=== PATIENT | male | born 1955 | race Caucasian/White ===

== ENCOUNTER 2018-09-21 23:57 | Emergency (ER) | payer BC, MEDICARE ==
[~2018-09-21] VITALS: Ht 167.6 cm; Wt 85.3 kg
--- NOTE | 2018-09-22 00:12 | NUR ---
SUMMER C/O "HAD BROKEN RT SHOULDER YESTERDAY, FELL ON RT SHOULDER, FEELS LIKE I BROKE IT AGAIN", -SOB, -NEURO DEFICIT, AOX4, UNABLE TO MOVE SHOULDER.
--- NOTE | 2018-09-22 00:15 | NUR ---
XR RT SHOULDER DONE AT BED SIDE.
--- NOTE | 2018-09-22 01:26 | NUR ---
Patient discharged to home in stable condition. Written rx as well as copy of xr results and verbal after care instructions given. Patient verbalizes understanding of instruction.
[2018-09-22 01:28] VITALS: BP 125/74
== END 2018-09-22 01:34 | disposition home or self-care (01) ==
LOC: ER 23:59
DX: S42.211A Unspecified displaced fracture of surgical neck of right humerus, initial encounter for closed fracture (principal); I10 Essential (primary) hypertension; W19.XXXA Unspecified fall, initial encounter; Y93.89 Activity, other specified; Y92.89 Other specified places as the place of occurrence of the external cause; Y99.8 Other external cause status
CPT/HCPCS: 73030-TC

== ENCOUNTER 2018-09-25 11:39 | Emergency (ER) | payer SELFPAY ==
[~2018-09-25] VITALS: Ht 167.6 cm; Wt 71.2 kg
[2018-09-25 11:45] VITALS: BP 144/77
== END 2018-09-25 13:14 | disposition home or self-care (01) ==
LOC: ER 11:42
DX: S42.352A Displaced comminuted fracture of shaft of humerus, left arm, initial encounter for closed fracture (principal); I10 Essential (primary) hypertension; Y04.0XXA Assault by unarmed brawl or fight, initial encounter; Y93.89 Activity, other specified; Y92.89 Other specified places as the place of occurrence of the external cause; Y99.8 Other external cause status
CPT/HCPCS: 73030-TC